=== PATIENT | female | born 1965 | race Caucasian/White ===

== ENCOUNTER 2021-02-20 08:40 | Outpatient (REF) | payer BC, SELFPAY ==
[2021-02-20 11:16] LABS: Glucose Urine UA NEG (NEG); Leukocyte Esterase Urine 3+ (NEG); Nitrite Urine NEG (NEG); Specific Gravity - Urine 1.015 (1.005-1.025); Urine Blood TRACE (NEG); Urine Ketones NEG (NEG); Urine Protein NEG (NEG-TRACE)
[2021-02-20 11:18] LABS: Appearance Urine HAZY; Color Urine YELLOW
[2021-02-20 11:22] LABS: Hematocrit 37.8 % (37-47); Hemoglobin 12.9 g/dl (12.0-16.0); Mean Corpuscular HGB Conc 34.1 g/dl (31.0-35.0); Mean Corpuscular Hemoglobin 31.9 pg (27.0-33.0); Mean Corpuscular Volume 93.3 fL (80-98); Mean Platelet Volume 8.9 fL (9.4-12.3); Platelet Count 237 X10*3/uL (160-400); Red Blood Count 4.05 X10*6/uL (4.20-5.50); Red Cell Distribution Width 12.8 % (11.0-16.0); White Blood Count 5.7 X10*3/uL (4.8-10.8)
[2021-02-20 11:26] LABS: Bacteria Urine 4+ /LPF; RBC Urine 0-2 /HPF (0); Squamous Epithelial Cell Urine 4+ /LPF
[2021-02-20 11:47] LABS: Alanine Aminotransferase 12 U/L (0-31); Albumin Level 4.3 g/dL (3.5-5.0); Alkaline Phosphatase 82 U/L (39-117); Anion Gap 13 (12-20); Aspartate Amino Transferase 15 U/L (5-31); Bilirubin Total 0.9 mg/dL (0.0-1.0); Blood Urea Nitrogen 14 mg/dL (9-16); Carbon Dioxide 25 mmol/L (22-29); Chloride 107 mmol/L (96-108); Cholesterol 181 mg/dL; Estimated Glomerular Filt Rate > 60; Glucose Fasting 88 mg/dL (60-99); HDL Cholesterol 60 mg/dL; LDL Cholesterol Calculated 95 mg/dl; Potassium 3.9 mmol/L (3.3-5.1); Sodium 141 mmol/L (135-145); Total Protein 6.9 g/dL (6.5-8.0); Triglycerides 132 mg/dL
[2021-02-20 11:53] LABS: TSH reflex Free T4 1.67 uIU/mL (0.32-4.0)
== END 2021-02-20 08:41 | disposition home or self-care (01) ==
LOC: HO.HMGCLDS 08:40
PROVIDERS: PCP Internal Medicine; Visit Provider Internal Medicine
DX: Z00.00 Encounter for general adult medical examination without abnormal findings (principal)
CPT/HCPCS: 36415; 80053; 80061; 81001; 84443; 85027

== ENCOUNTER 2022-03-01 08:22 | Outpatient (REF) | payer BC, SELFPAY ==
[2022-03-01 11:45] LABS: Appearance Urine CLOUDY; Color Urine YELLOW; Glucose Urine UA NEG (NEG); Leukocyte Esterase Urine NEG (NEG); Nitrite Urine NEG (NEG); PH 8.5 (5.0-8.0); Specific Gravity - Urine 1.015 (1.005-1.025); Urine Blood NEG (NEG); Urine Ketones NEG (NEG); Urine Protein NEG (NEG-TRACE)
[2022-03-01 11:51] LABS: Basophils Percent Auto 0.2 % (0-2); Eosinophils Absolute Auto 0.1 X10*3/uL (0.0-0.4); Hematocrit 39.1 % (37.0-47.0); Hemoglobin 13.2 g/dl (12.0-16.0); Imm Gran Abs Auto 0.02 X10*3/uL (0.00-0.03); Imm Gran Pct Auto 0.4 % (0.0-0.4); Lymphocytes Percent Auto 22.6 % (20-40); MANUAL DIFF FLAG NO; Mean Corpuscular HGB Conc 33.8 g/dl (31.0-35.0); Mean Corpuscular Hemoglobin 31.8 pg (27.0-33.0); Mean Corpuscular Volume 94.2 fL (80.0-98.0); Mean Platelet Volume 9.4 fL (9.4-12.3); Monocytes Absolute Auto 0.3 X10*3/uL (0.1-1.2); Monocytes Percent Auto 6.4 % (2-11); Neutrophils Absolute Auto 3.1 x10*3/uL (2.0-8.3); Neutrophils Percent Auto 68.4 % (45-73); Platelet Count 218 X10*3/uL (160-400); Red Blood Count 4.15 X10*6/uL (4.20-5.50); Red Cell Distribution Width 12.9 % (11.0-16.0); White Blood Count 4.6 X10*3/uL (4.8-10.8)
[2022-03-01 12:02] LABS: RBC Urine 0 /HPF (0); WBC Urine 0 /HPF (0-4)
[2022-03-01 12:03] LABS: Amorphous Sediment Urine 3+ /LPF; Mucus Urine 2+ /LPF; Squamous Epithelial Cell Urine 1+ /LPF
[2022-03-01 12:21] LABS: HBS Num1 44.71 mIU/mL (0-7.99); ~Hepatitis B Surface Antibody REACTIVE (Nonreactive)
[2022-03-01 12:32] LABS: TSH reflex Free T4 1.53 uIU/mL (0.32-4.0); Vitamin D 25-OH Total 58.1 ng/mL (>30)
[2022-03-01 12:38] LABS: Alanine Aminotransferase 19 U/L (0-31); Albumin Level 4.2 g/dL (3.5-5.0); Alkaline Phosphatase 86 U/L (39-117); Anion Gap 11 (12-20); Aspartate Amino Transferase 17 U/L (5-31); Bilirubin Total 0.9 mg/dL (0.0-1.0); Blood Urea Nitrogen 12 mg/dL (9-16); Carbon Dioxide 27 mmol/L (22-29); Chloride 105 mmol/L (96-108); Cholesterol 208 mg/dL; Estimated Glomerular Filt Rate > 60; Glucose Fasting 98 mg/dL (60-99); HDL Cholesterol 60 mg/dL; LDL Cholesterol Calculated 133 mg/dl; Potassium 4.2 mmol/L (3.3-5.1); Sodium 139 mmol/L (135-145); Total Protein 6.7 g/dL (6.5-8.0); Triglycerides 76 mg/dL
[2022-03-02 21:41] LABS: Rubella IgG Antibody 6.21 Index
== END 2022-03-01 08:23 | disposition home or self-care (01) ==
LOC: HO.HMGCLDS 08:22
PROVIDERS: PCP Internal Medicine; Visit Provider Internal Medicine
DX: Z00.00 Encounter for general adult medical examination without abnormal findings (principal); Z98.890 Other specified postprocedural states; Z92.89 Personal history of other medical treatment
CPT/HCPCS: 36415; 80053; 80061; 81001; 82306; 84443; 85025; 86706; 86735; 86762; 86765; 86787

== ENCOUNTER 2023-05-31 11:07 | Outpatient (AMB) | payer BC, SELFPAY ==
--- NOTE | 2023-05-31 11:08 | MHC.PC.OV ---
Vital Signs 05/31/23 11:09 Height 5 ft 4 in Weight 165 lb BMI 28.3 BP 118/64 Blood Pressure Location Lt brachial Position Sitting Pulse 67 Pulse Source Pulse Oximeter Pulse Oximetry (%) 98 Oxygen Delivery Method Room Air Intake Visit Reasons: Right Hip Pain/Medications Intake Note: Pt is here today for a follow up visit. Pt states that she needs refill on her medication. Pt states that she still has the R hip pain when she press on the hip she gets the ache, constant pain. Allergies No Known Allergies [No Known Allergies*] Allergy (Verified 05/31/23 11:12) Medication List - Last Reconciled 05/31/23 by Leslie Cottrell MD albuterol sulfate 90 mcg/actuation 2 puffs PO Q4H PRN beclomethasone dipropionate 80 mcg/actuation inhalation miscellaneous medical supply ergo chair as directed; Dx: neck and back pain miscellaneous medical supply rising desk as directed; DX: neck and back pain multivitamin 1 tab PO DAILY sertraline 100 mg PO DAILY [vitamin B12 PO] [vitamin D3 1000 unit a day] Tobacco use date assessed: 05/31/23 Dental Screening Dental Screen Date: 05/31/23 Did you have a dental visit in the last 12 months?: Yes Did you have a dental problem in the last 6 months where you did not have access to dental care?: No Was dental information given to patient?: Patient has dentist HPI Right Hip Pain/Medications HPI Details Patient presents for a physical. She complains of chronic persistent almost daily R side upper thigh pain worse after walking longer distance. She has been doing exercise and stretching regularly. patient is a physical therapist. [facility] Medical History (Updated 05/31/23 @ 11:44 by Leslie Cottrell MD) URI (upper respiratory infection) Annual physical exam Trigger finger of right thumb Depression Anxiety Surgical History (Updated 05/31/23 @ 12:33 by Leslie Cottrell MD) H/O colonoscopy Social History Housing: House Patient Tobacco Use Status: Never used Tobacco e-Cigarette/Vaping Use: Never Used Second Hand Smoke Exposure: No service: No Current occupational status: employed Current occupation: Occupational Therapist Current occupational exposures/hazards: No Cognitive needs: No Hearing needs: No Vision needs: Yes Questionnaire Thrive Questionnaire Date Thrive assessed: 02/21/22 AUDIT C Alcohol Use Questionnaire (AUDIT-C) 1. How often do you have a drink containing alcohol?: 2-3 times a week 2. How many drinks containing alcohol do you have on a typical day when you are drinking?: 1 or 2 3. How often do you have six or more drinks on one occasion?: Never Total Score: 3 ANA-7 AMB Questionnaire ANA-7 Date ANA - 7 assessed: 02/21/22 Source: Developed by Drs. Kadeem Marshall, Lizbeth Briones, Willie Gallego and colleagues, with an educational león from [employer]. Review of Systems Const All systems reviewed & are unremarkable except as noted in HPI and below Reports no additional complaints Eyes Reports no additional complaints ENT Reports no additional complaints Card Reports no additional complaints Resp Reports no additional complaints GI Reports no additional complaints Reports no additional complaints Physical exam (Primary Care) Vital Signs: Last Vital Signs Pulse 67 05/31/23 11:09 BP 118/64 05/31/23 11:09 Pulse Ox 98 05/31/23 11:09 Oxygen Delivery Method Room Air 05/31/23 11:09 BMI result Body Mass Index 28.3 Tobacco/Smoking Status: Tobacco use Status Tobacco use date assessed 05/31/23 05/31/23 11:17 Patient Tobacco Use Status Never used Tobacco 05/31/23 11:17 e-Cigarette/Vaping Use Never Used 05/31/23 11:17 Thrive Assessment: Date of Thrive Assessment Date Thrive assessed 02/21/22 05/31/23 11:17 Const General: no acute distress HENMT Head: Yes normal to inspection Ears: hearing grossly normal bilaterally Face and sinus: Yes normal facial exam Throat: Yes posterior oropharynx normal Neck Neck: Yes no lymphadenopathy and Yes supple Resp Effort & Inspection: normal respiratory effort Auscultation: clear to auscultation bilaterally Cardio Rhythm: regular rhythm Heart sounds: S1 normal heart sound present and S2 normal heart sound present GI Inspection: Yes normal to inspection Palpation (GI): Soft to palpation Percussion: Yes normal to percussion Auscultation: normal bowel sounds Back/Spine/Pelvis Other: There is a tenderness over right SI joint and slightly decreased range of motion right hip, straight leg rising 90 degrees bilaterally Assessment and Plan Assessment & Plan (1) Hip pain, right: Code(s): M25.551 - Pain in right hip Plan: Wendy x-ray of right SI joint and hip. Patient was advised to continue stretching before and after exercise. She declined referral for cortisone injection (2) Chronic right SI joint pain: Code(s): M53.3 - Sacrococcygeal disorders, not elsewhere classified; G89.29 - Other chronic pain (3) Annual physical exam: Code(s): Z00.00 - Encounter for general adult medical examination without abnormal findings Plan: Well-balanced diet regular physical activity discussed with the patient she is up to date with mammogram colonoscopy and Pap smear by information services consultant. Patient will return for fasting blood (4) H/O colonoscopy: Comment: colonoscopy 12/2018 1 polyp 8 mm, repeat 2021, recheck in 3 years, Dr. Santana Code(s): Z98.890 - Other specified postprocedural states (5) Anxiety: Code(s): F41.9 - Anxiety disorder, unspecified Plan: Continue sertraline. follow-up in 1 year Orders: Orders Comprehensive [place]. Panel Fast Today G89.29 - Other chronic pain, M25.551 - Pain in right hip, M53.3 - Sacrococcygeal disorders, not elsewhere classified, Z00.00 - Encounter for general adult medical examination without abnormal findings Lipid Panel Today G89.29 - Other chronic pain, M25.551 - Pain in right hip, M53.3 - Sacrococcygeal disorders, not elsewhere classified, Z00.00 - Encounter for general adult medical examination without abnormal findings TSH reflex Free T4 Today G89.29 - Other chronic pain, M25.551 - Pain in right hip, M53.3 - Sacrococcygeal disorders, not elsewhere classified, Z00.00 - Encounter for general adult medical examination without abnormal findings Vitamin D 25-OH Total Today E55.9 - Vitamin D deficiency, unspecified XR hip RT w PEL1V Today M25.551 - Pain in right hip Complete Blood Count Auto Diff Today G89.29 - Other chronic pain, M25.551 - Pain in right hip, M53.3 - Sacrococcygeal disorders, not elsewhere classified, Z00.00 - Encounter for general adult medical examination without abnormal findings XR sacroiliac joint 1-2V Today G89.29 - Other chronic pain, M25.551 - Pain in right hip, M53.3 - Sacrococcygeal disorders, not elsewhere classified, Z00.00 - Encounter for general adult medical examination without abnormal findings Medications: Refilled sertraline 100 mg PO DAILY 90 tabs 3RF F32.9 - Major depressive disorder, single episode, unspecified, F41.9 - Anxiety disorder, unspecified Coding Level of Care Code Est Pt Prev Care 40-64y(59709) Diagnoses Hip pain, right M25.551 Chronic right SI joint pain M53.3; G89.29 Annual physical exam Z00.00 H/O colonoscopy Z98.890 Anxiety F41.9
[2023-05-31 11:09] VITALS: BP 118/64; PULSE 67; O2SAT 98; BMI 28.3
== END 2023-05-31 12:36 | disposition home or self-care (01) ==
PROVIDERS: PCP Internal Medicine; Visit Provider Internal Medicine
DX: M25.551 Pain in right hip (principal); M53.3 Sacrococcygeal disorders, not elsewhere classified; G89.29 Other chronic pain; Z00.00 Encounter for general adult medical examination without abnormal findings; Z98.890 Other specified postprocedural states; F41.9 Anxiety disorder, unspecified
CPT/HCPCS: 99396

== ENCOUNTER 2023-05-31 11:51 | Outpatient (REF) | payer BC, SELFPAY ==
--- NOTE | ~2023-05-31 | XR_ITS ---
EXAMINATION: XR SACROILIAC JOINTS XR HIP, RIGHT WITH AP PELVIS CLINICAL INFORMATION: Right hip pain. Sacrococcygeal disorder. COMPARISON: Pelvic radiograph 01/12/2019 TECHNIQUE: AP and oblique views of each SI joint. AP radiograph of the pelvis. AP and frog-lateral views of the right hip. FINDINGS: Minimal bilateral hip osteoarthritis with small marginal osteophytes. No acute osseous abnormality. Minimal degenerative changes of the sacroiliac joints. No erosions or ankylosis. Prominent facet arthrosis bilaterally at L5-S1 and on the right at L4-L5. 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 Prominent facet arthrosis at L4-L5 and L5-S1.
--- NOTE | ~2023-05-31 | XR_ITS ---
EXAMINATION: XR SACROILIAC JOINTS XR HIP, RIGHT WITH AP PELVIS CLINICAL INFORMATION: Right hip pain. Sacrococcygeal disorder. COMPARISON: Pelvic radiograph 01/12/2019 TECHNIQUE: AP and oblique views of each SI joint. AP radiograph of the pelvis. AP and frog-lateral views of the right hip. FINDINGS: Minimal bilateral hip osteoarthritis with small marginal osteophytes. No acute osseous abnormality. Minimal degenerative changes of the sacroiliac joints. No erosions or ankylosis. Prominent facet arthrosis bilaterally at L5-S1 and on the right at L4-L5. 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 Prominent facet arthrosis at L4-L5 and L5-S1.
== END 2023-05-31 11:52 | disposition home or self-care (01) ==
LOC: HO.HMGCX 11:51
PROVIDERS: PCP Internal Medicine; Visit Provider Internal Medicine
DX: M25.551 Pain in right hip (principal); M53.3 Sacrococcygeal disorders, not elsewhere classified; G89.29 Other chronic pain; Z00.00 Encounter for general adult medical examination without abnormal findings
CPT/HCPCS: 72200; 73502

== ENCOUNTER 2023-06-13 08:21 | Outpatient (REF) | payer BC, SELFPAY ==
[2023-06-13 11:36] LABS: MANUAL DIFF FLAG NO
[2023-06-13 11:48] LABS: Basophils Percent Auto 0.5 % (0-2); Eosinophils Absolute Auto 0.1 X10*3/uL (0.0-0.4); Eosinophils Percent Auto 1.8 % (0-4); Hematocrit 40.8 % (37.0-47.0); Hemoglobin 13.9 g/dl (12.0-16.0); Imm Gran Abs Auto 0.02 X10*3/uL (0.00-0.03); Imm Gran Pct Auto 0.4 % (0.0-0.4); Lymphocytes Absolute Auto 1.4 X10*3/uL (1.2-4.9); Lymphocytes Percent Auto 24.2 % (20-40); Mean Corpuscular HGB Conc 34.1 g/dl (31.0-35.0); Mean Corpuscular Hemoglobin 31.9 pg (27.0-33.0); Mean Corpuscular Volume 93.6 fL (80.0-98.0); Mean Platelet Volume 8.9 fL (9.4-12.3); Monocytes Absolute Auto 0.3 X10*3/uL (0.1-1.2); Monocytes Percent Auto 5.2 % (2-11); Neutrophils Absolute Auto 3.8 x10*3/uL (2.0-8.3); Neutrophils Percent Auto 67.9 % (45-73); Platelet Count 249 X10*3/uL (160-400); Red Blood Count 4.36 X10*6/uL (4.20-5.50); Red Cell Distribution Width 12.6 % (11.0-16.0); White Blood Count 5.6 X10*3/uL (4.8-10.8)
[2023-06-13 12:21] LABS: Alanine Aminotransferase 18 U/L (0-31); Albumin Level 4.3 g/dL (3.5-5.0); Alkaline Phosphatase 90 U/L (39-117); Anion Gap 15 (12-20); Aspartate Amino Transferase 16 U/L (5-31); Bilirubin Total 0.8 mg/dL (0.0-1.0); Blood Urea Nitrogen 14 mg/dL (9-16); Calcium 9.6 mg/dL (8.4-10.2); Carbon Dioxide 23 mmol/L (22-29); Chloride 101 mmol/L (96-108); Cholesterol 217 mg/dL (<200); Estimated Glomerular Filt Rate > 60; Glucose Fasting 95 mg/dL (60-99); HDL Cholesterol 60 mg/dL (>40); LDL Cholesterol Calculated 138 mg/dL (<100); Potassium 4.2 mmol/L (3.3-5.1); Sodium 135 mmol/L (135-145); Total Protein 7.1 g/dL (6.5-8.0); Triglycerides 95 mg/dL (<150)
[2023-06-13 12:26] LABS: TSH reflex Free T4 2.52 uIU/mL (0.32-4.0); Vitamin D 25-OH Total 64.5 ng/mL (>30)
== END 2023-06-13 08:22 | disposition home or self-care (01) ==
LOC: HO.HMGCLDS 08:21
PROVIDERS: PCP Internal Medicine; Visit Provider Internal Medicine
DX: Z00.00 Encounter for general adult medical examination without abnormal findings (principal); M53.3 Sacrococcygeal disorders, not elsewhere classified; G89.29 Other chronic pain; M25.551 Pain in right hip; E55.9 Vitamin D deficiency, unspecified
CPT/HCPCS: 36415; 80053; 80061; 82306; 84443; 85025

== ENCOUNTER 2023-06-19 07:59 | Outpatient (REF) | payer BC, SELFPAY ==
--- NOTE | ~2023-06-19 | MM_ITS ---
EXAMINATION: BONE DENSITOMETRY CLINICAL INDICATION: Menopause. COMPARISON: This is the patient's baseline examination. TECHNIQUE: Using a [employer] DXA System (software version: 13.1) manufactured by [employer], dual-energy x-ray absorptiometry was performed of the lumbar spine and left hip. The images are of good technical quality. Summary results are attached. FINDINGS: AP SPINE L1-L4: BMD 1.006 g/cm2, Z-score -0.9, T-score -1.5, osteopenia. LEFT FEMUR, NECK: BMD 0.742 g/cm2, Z-score -1.3, T-score -2.1, osteopenia. LEFT FEMUR, TOTAL: BMD 0.802 g/cm2, Z-score -1.2, T-score -1.6, osteopenia. IDENTIFIED RISK FACTORS: Menopause. HISTORY OF FRACTURE: None listed. MEDICATIONS: Multivitamin, vitamin D. MM/XR DEXA axial skeleton IMPRESSION: 1. DIAGNOSIS: Osteopenia based on the lowest T-score value of -2.1 in the femoral neck applying World Health Organization criteria. 2. 10-YEAR FRACTURE RISK PREDICTION, FRAX: Major osteoporotic fracture (clinical spine, forearm, hip or shoulder) 8.3%. Hip fracture 1.1%. 3. Treatment Recommendations: NOF guidelines recommend consideration for treatment in postmenopausal women and men age 50 and older presenting with the following: -A hip or vertebral (clinical or morphometric) fracture. -T-score less than or equal to -2.5 at the femoral neck or spine after appropriate evaluation to exclude secondary causes. -Low bone mass at the hip or spine and a 10-year fracture probability by FRAX of greater than or equal to 3% for hip fracture or greater than or equal to 20% for major osteoporotic fracture based on the [place] adapted WHO algorithm. 4. Other Recommendations: All treatment decisions require clinical judgment and consideration of individual patient factors, including patient preferences, comorbidities, previous drug use, risk factors not captured in the FRAX model (e.g. frailty, falls, vitamin D deficiency, increased bone turnover, interval significant decline in bone density) and possible under or overestimation of fracture risk by FRAX. Additional medical evaluation for secondary cause of low bone mineral density may be appropriate. FUTURE SCAN RECOMMENDATION: People with diagnosed cases of osteoporosis or at high risk for fracture should have regular bone mineral density tests. For patients eligible for Medicare, routine testing is allowed once every 2 years. The testing frequency can be increased to one year for patients who have rapidly progressing disease, those who are receiving or discontinuing medical therapy to restore bone mass, or have additional risk factors.
== END 2023-06-19 08:00 | disposition home or self-care (01) ==
LOC: HO.MAMMO 07:59
PROVIDERS: PCP Internal Medicine; Visit Provider Internal Medicine
DX: Z13.820 Encounter for screening for osteoporosis (principal); Z78.0 Asymptomatic menopausal state
CPT/HCPCS: 77080

== ENCOUNTER 2023-07-10 18:17 | Outpatient (REF) | payer BC, SELFPAY ==
--- NOTE | ~2023-07-10 | MR_ITS ---
EXAMINATION: MR LUMBAR SPINE WITHOUT CONTRAST CLINICAL INFORMATION: Disc degeneration, pain COMPARISON: None available TECHNIQUE: MRI of the lumbar spine was obtained using routine sequences without the administration of intravenous contrast. FINDINGS: This examination assumes the presence of 5 lumbar type vertebral bodies. For the purposes of this examination, the L5-S1 intervertebral disc space is visualized on axial series 5 image 23. The normal lumbar lordosis is preserved. Retrolisthesis of L2-L3 and L3-L4. Levocurvature of the lumbar spine. Lumbar vertebral body heights are maintained. Benign fatty lesion in the T11 vertebral body. There is prominent right-sided facet/perifacet edema at L4-L5 extending into the right L4-L5 pedicles. Findings likely on the basis of degenerative change/stress reaction. The conus medullaris is normal in signal intensity and terminates at the level of L1. The cauda equina nerve roots within normal limits. L1-L2: No significant spinal canal or neural foraminal stenosis. L2-L3: Disc bulge and facet arthropathy. The spinal canal is not significantly narrowed. Mild narrowing of the bilateral neural foramen. L3-L4: Disc bulge and osteophytic ridging with facet arthropathy and ligamentum flavum redundancy. The spinal canal is patent. The neural foramen are not significantly narrowed. L4-L5: Left foraminal disc protrusion with annular fissure. Facet arthropathy with ligamentum flavum redundancy. The spinal canal is not significantly narrowed. The neural foramen remain patent. L5-S1: Disc bulge and facet arthropathy with ligamentum flavum redundancy. The spinal canal is patent. Mild to moderate right neural foraminal stenosis. Mild narrowing of the left neural foramen. Subcentimeter T2 hyperintense focus in the right kidney is too small to characterize. MR/MR lumbar spine wo con IMPRESSION: Levocurvature of the lumbar spine with multilevel degenerative changes as described above. No high-grade spinal canal or neural foraminal stenosis. Asymmetric right-sided facet/perifacet edema extending into the right L4 and L5 pedicles is likely on the basis of asymmetric degenerative change/stress reaction.
== END 2023-07-10 18:18 | disposition home or self-care (01) ==
LOC: HO.MRI 18:17
PROVIDERS: PCP Internal Medicine; Visit Provider Internal Medicine
DX: M51.36 Other intervertebral disc degeneration, lumbar region (principal)
CPT/HCPCS: 72148

== ENCOUNTER 2023-09-11 09:19 | Outpatient (AMB) | payer BC, SELFPAY ==
--- NOTE | 2023-09-11 09:59 | HO.SPINEOV ---
Intake Intake Visit Reasons: low back pain Allergies No Known Allergies [No Known Allergies*] Allergy (Verified 05/31/23 11:12) Assessment & Plan Assessment & Plan (1) Low back pain: Code(s): M54.50 - Low back pain, unspecified Plan Dear Colleague, Thank you for referring Marlene to our office today. She is a pleasant 57-year-old female who comes in today with a chief complaint of isolated right-sided thigh pain alongside low back pain. She reports that her symptoms began without any inciting incident around December of 2022. She states that this pain is waxing/waning in nature in his low-grade/constant. She reports that her pain is exacerbated when moving and exercising. She states that resting helps to alleviate the pain. She has attempted to utilize conservative pain control methods via ice, heat, pain patches, and [id number] pain control medicines with modest relief. She states that her pain was worse over the summer when she felt she weighed more, and has slowly begun to lessen as she has lost weight and continued exercise. She is previously been worked up for SI joint arthritis on the right side, and is not amenable to having SI joint injections at this time. PMH: Asthma, depression, vitamin-D deficiency, anxiety. Social hx: Patient does not smoke, reports no substance use. Medications: Albuterol, sertraline, multivitamin. Allergies: NKDA. Physical exam: The patient has 5/5 strength in her upper and lower extremities. No sensational deficits. Reflexes are 2+ intact. The patient ambulates well and rises from seated position without difficulty. (+) Mckenzie finger test R side, weakly (+) Per's right side, (-) Romo's, (-) clonus. Imaging review: MRI of the lumbar spine completed here at [facility] shows normal spondylosis for a female of her age. No significant posterior disc bulge, no significant central canal stenosis. Exiting foramen appear open without significant stenosis in the lumbar spine Impression: Marlene is a pleasant 57-year-old female who comes in today with a chief complaint of low back pain and right-sided thigh pain. She reports that her symptoms are waxing/waning in nature and seem to be improving with weight loss and exercise. She is previously been worked up for a right-sided SI joint pathology, and had an x-ray showing mild-moderate arthritis on this side in the SI joint region. She was not amenable to this suggestion of her primary care to obtain an SI joint injection per previous internal medicine notes. At this time I believe conservative measures to be her best option. We did have some discussion of potential physical therapy, but she feels she is able to do those exercises at home as she practices as an occupational therapist. We do not see any acute or obvious neurosurgical intervention that could help relieve her pain. She was encouraged to follow-up with us in the future if she has new or worsening symptoms. Thank you for allowing us to care for your patient. The total time spent with this visit with this patient was 45 minutes reviewing history, physical exam, MRI imaging review, and implementation of treatment plan or further diagnostic testing Kye Vo MD,PhD [facility] Coding Level of Care Code New Pt Level 4 (77185) Diagnoses Low back pain M54.50
== END 2023-09-11 09:57 | disposition home or self-care (01) ==
PROVIDERS: PCP Internal Medicine; Referring Provider Internal Medicine; Visit Provider Neurological Surgery
DX: M54.50 Low back pain, unspecified (principal)
CPT/HCPCS: 99204

== ENCOUNTER → 2023-09-11 09:19 | Outpatient (BNVA) | payer BC, SELFPAY | PROVIDERS: PCP Internal Medicine; Referring Provider Internal Medicine; Visit Provider Neurological Surgery ==

== ENCOUNTER 2024-06-12 11:16 | Outpatient (AMB) | payer BC, SELFPAY ==
[2024-06-12 11:18] VITALS: BP 128/80; PULSE 79; O2SAT 96; BMI 27.8
--- NOTE | 2024-06-12 11:18 | A.OFFPC_ITS ---
Vital Signs 06/12/24 11:18 Height 5 ft 4 in Weight 162 lb BMI 27.8 BP 128/80 Blood Pressure Location Lt brachial Position Sitting Pulse 79 Pulse Source Pulse Oximeter Pulse Oximetry (%) 96 Oxygen Delivery Method Room Air Intake Visit Reasons: Annual PE Intake Note: Pt is here today for PE. Allergies No Known Allergies [No Known Allergies*] Allergy (Verified 06/12/24 11:19) Medication List - Last Reconciled 06/12/24 by Leslie Cottrell MD albuterol sulfate 90 mcg/actuation 2 puffs PO Q4H PRN beclomethasone dipropionate 80 mcg/actuation inhalation miscellaneous medical supply ergo chair as directed; Dx: neck and back pain miscellaneous medical supply rising desk as directed; DX: neck and back pain multivitamin 1 tab PO DAILY sertraline 100 mg PO DAILY [vitamin B12 PO] [vitamin D3 1000 unit a day] Tobacco use date assessed: 06/12/24 Dental Screening Dental Screen Date: 06/12/24 Did you have a dental visit in the last 12 months?: Yes Did you have a dental problem in the last 6 months where you did not have access to dental care?: No Was dental information given to patient?: Patient has dentist HPI Annual PE HPI Details Patient presents for a physical. Her father was diagnosed with metastatic pancreatic cancer and is on hospice. Patient is very upset and is trying to support her mother. [facility] Medical History URI (upper respiratory infection) Annual physical exam Trigger finger of right thumb Depression Anxiety Surgical History H/O colonoscopy Social History Housing: House Patient Tobacco Use Status: Never used Tobacco e-Cigarette/Vaping Use: Never Used Second Hand Smoke Exposure: No service: No Current occupational status: employed Current occupation: Occupational Therapist Current occupational exposures/hazards: No Cognitive needs: No Hearing needs: No Vision needs: Yes Questionnaire PHQ-9 Over the last 2 weeks, how often have you been bothered by any of the following problems? 1. Little interest or pleasure in doing things: not at all 2. Feeling down, depressed, or hopeless: not at all 3. Trouble falling or staying asleep, or sleeping too much: not at all 4. Feeling tired or having little energy: nearly every day 5. Poor appetite or overeating: not at all 6. Feeling bad about yourself - or that you are a failure or have let yourself or your family down: not at all 7. Trouble concentrating on things, such as reading the newspaper or watching television: not at all 8. Moving or speaking so slowly that other people could have noticed. Or the opposite - being so fidgety or restless that you have been moving around a lot more than usual: not at all 9. Thoughts that you would be better off or of hurting yourself in some w ay: not at all Total score: 3 Depression Screening Interpretation: Negative Depression Screening Done: Yes 81199 - PHQ-9 Billing: Yes Source: Developed by Drs. Kadeem Marshall, Lizbeth Briones, Willie Gallego and colleagues, with an educational león from [employer] Thrive Questionnaire Date Thrive assessed: 06/12/24 I am a: Patient What is your living situation today?: I have a steady place to live Within the past 12 months, did the food you bought not last and you didn't have the money to get more?: Never true Within the past 12 months, did you worry whether your food would run out before you got money to buy more?: Never true Do you have trouble paying for medicines?: No Do you have trouble getting transportation to medical appointments?: No Do you have trouble paying your heating and electricity bill?: No Do you have trouble taking care of your child, family member or friend?: No Do you have trouble with day-to-day activities such as bathing, preparing meals, shopping, managing finances, etc.?: No Are you currently unemployed and looking for a job?: No Are you interested in more education?: Yes Please select the resources that you would like help with: Care for elder or disabled Currently or been in a relationship where the following occur: No concerns reported THRIVE Score: 0 AUDIT C Alcohol Use Questionnaire (AUDIT-C) 1. How often do you have a drink containing alcohol?: 2-3 times a week 2. How many drinks containing alcohol do you have on a typical day when you are drinking?: 3 or 4 3. How often do you have six or more drinks on one occasion?: Weekly Total Score: 7 ANA-7 AMB Questionnaire ANA-7 Date ANA - 7 assessed: 06/12/24 Feeling nervous, anxious, or on edge: 3 = Nearly every day Not being able to stop or control worryin = Nearly every day Worrying too much about different things: 3 = Nearly every day Trouble relaxin = Nearly every day Being so restless that it is hard to sit still: 3 = Nearly every day Becoming easily annoyed or irritable: 3 = Nearly every day Feeling afraid as if something awful might happen: 3 = Nearly every day Total ANA-7 score (0-4 normal; 5-9 mild; 10-14 moderate; 15-21 severe): 21 Source: Developed by Drs. Kadeem Marshall, Lizbeth Briones, Willie Gallego and colleagues, with an educational león from [employer] ANA-7 Assessment Billing ANA-7 Assessment Tool: ANA-7 Assessment 77346 Review of Systems Const All systems reviewed & are unremarkable except as noted in HPI and below Reports no additional complaints Eyes Reports no additional complaints ENT Reports no additional complaints Card Reports no additional complaints Resp Reports no additional complaints GI Reports no additional complaints Reports no additional complaints Physical exam (Primary Care) Vital Signs: Last Vital Signs Pulse 79 06/12/24 11:18 BP 128/80 06/12/24 11:18 Pulse Ox 96 06/12/24 11:18 Oxygen Delivery Method Room Air 06/12/24 11:18 BMI result Body Mass Index 27.8 Tobacco/Smoking Status: Tobacco use Status Tobacco use date assessed 06/12/24 06/12/24 11:20 Patient Tobacco Use Status Never used Tobacco 06/12/24 11:20 e-Cigarette/Vaping Use Never Used 06/12/24 11:20 PHQ-9: PHQ-9 Score PHQ-9: Total score 3 06/12/24 11:27 Depression Screening Interpretation: Negative Thrive Assessment: Date of Thrive Assessment Date Thrive assessed 06/12/24 06/12/24 11:20 Currently or been in a relationship where the following occur: No concerns reported Const General: no acute distress HENMT Face and sinus: Yes normal facial exam Neck Neck: Yes no lymphadenopathy and Yes supple Resp Effort & Inspection: normal respiratory effort Auscultation: clear to auscultation bilaterally Cardio Rhythm: regular rhythm Heart sounds: S1 normal heart sound present and S2 normal heart sound present GI Inspection: Yes normal to inspection Palpation (GI): Soft to palpation Percussion: Yes normal to percussion Auscultation: normal bowel sounds Coding Level of Care Code Est Pt Prev Care 40-64y(06190) Diagnoses Vitamin D deficiency E55.9 Annual physical exam Z00.00 Anxiety F41.9 Additional Codes ANA-7 Assessment Billing - ANA-7 Assessment Tool: ANA-7 Assessment [id number] ([id number]) Assessment & Plan Assessment & Plan (1) Vitamin D deficiency: Code(s): E55.9 - Vitamin D deficiency, unspecified Category: Medical Plan: Continue vitamin-D (2) Annual physical exam: Code(s): Z00.00 - Encounter for general adult medical examination without abnormal findings Category: Medical Plan: Well-balanced diet regular physical activity discussed with the patient she is up-to-date with the Pap smear by [facility] and colonoscopy. (3) Anxiety: Code(s): F41.9 - Anxiety disorder, unspecified Category: Medical Plan: Continue Zoloft patient will be referred for grieving counseling Orders: Orders Comprehensive [place]. Panel Fast Today E55.9 - Vitamin D deficiency, unspecified, F41.9 - Anxiety disorder, unspecified, Z00.00 - Encounter for general adult medical examination without abnormal findings Complete Blood Count Auto Diff Today E55.9 - Vitamin D deficiency, unspecified, F41.9 - Anxiety disorder, unspecified, Z00.00 - Encounter for general adult medical examination without abnormal findings Lipid Panel Today E55.9 - Vitamin D deficiency, unspecified, F41.9 - Anxiety disorder, unspecified, Z00.00 - Encounter for general adult medical examination without abnormal findings TSH reflex Free T4 Today E55.9 - Vitamin D deficiency, unspecified, F41.9 - Anxiety disorder, unspecified, Z00.00 - Encounter for general adult medical examination without abnormal findings Vitamin D 25-OH Total Today E55.9 - Vitamin D deficiency, unspecified, F41.9 - Anxiety disorder, unspecified, Z00.00 - Encounter for general adult medical examination without abnormal findings
== END 2024-06-12 13:17 | disposition home or self-care (01) ==
PROVIDERS: PCP Internal Medicine; Visit Provider Internal Medicine
DX: E55.9 Vitamin D deficiency, unspecified (principal); Z00.00 Encounter for general adult medical examination without abnormal findings; F41.9 Anxiety disorder, unspecified

== ENCOUNTER → 2024-06-12 11:16 | Outpatient (BNVA) | payer BC, SELFPAY | PROVIDERS: PCP Internal Medicine; Visit Provider Internal Medicine | DX: Z00.00 Encounter for general adult medical examination without abnormal findings (principal); E55.9 Vitamin D deficiency, unspecified; F41.9 Anxiety disorder, unspecified; Z79.899 Other long term (current) drug therapy | CPT/HCPCS: 96127 ==

== ENCOUNTER 2024-07-07 08:05 | Outpatient (REF) | payer BC, SELFPAY ==
[2024-07-07 10:12] LABS: MANUAL DIFF FLAG NO
[2024-07-07 10:23] LABS: Basophils Percent Auto 0.4 % (0-2); Eosinophils Absolute Auto 0.1 X10*3/uL (0.0-0.4); Hematocrit 38.6 % (37.0-47.0); Hemoglobin 13.1 g/dl (12.0-16.0); Imm Gran Abs Auto 0.02 X10*3/uL (0.00-0.03); Imm Gran Pct Auto 0.4 % (0.0-0.4); Lymphocytes Absolute Auto 1.3 X10*3/uL (1.2-4.9); Lymphocytes Percent Auto 23.4 % (20-40); Mean Corpuscular HGB Conc 33.9 g/dl (31.0-35.0); Mean Corpuscular Hemoglobin 31.4 pg (27.0-33.0); Mean Corpuscular Volume 92.6 fL (80.0-98.0); Monocytes Absolute Auto 0.3 X10*3/uL (0.1-1.2); Monocytes Percent Auto 4.9 % (2-11); Neutrophils Absolute Auto 3.8 x10*3/uL (2.0-8.3); Neutrophils Percent Auto 68.9 % (45-73); Platelet Count 229 X10*3/uL (160-400); Red Blood Count 4.17 X10*6/uL (4.20-5.50); Red Cell Distribution Width 12.7 % (11.0-16.0); White Blood Count 5.5 X10*3/uL (4.8-10.8)
[2024-07-07 10:46] LABS: Alanine Aminotransferase 19 U/L (0-31); Albumin Level 4.1 g/dL (3.5-5.0); Alkaline Phosphatase 89 U/L (39-117); Anion Gap 10 (12-20); Aspartate Amino Transferase 19 U/L (5-31); Bilirubin Total 0.7 mg/dL (0.0-1.0); Blood Urea Nitrogen 11 mg/dL (9-16); Calcium 9.1 mg/dL (8.4-10.2); Carbon Dioxide 25 mmol/L (22-29); Chloride 107 mmol/L (96-108); Cholesterol 209 mg/dL (<200); Estimated Glomerular Filt Rate > 60; Glucose Fasting 93 mg/dL (60-99); HDL Cholesterol 61 mg/dL (>40); LDL Cholesterol Calculated 131 mg/dL (<100); Potassium 3.7 mmol/L (3.3-5.1); Sodium 138 mmol/L (135-145); Total Protein 6.7 g/dL (6.5-8.0); Triglycerides 85 mg/dL (<150)
[2024-07-07 11:06] LABS: TSH reflex Free T4 1.94 uIU/mL (0.32-4.0)
== END 2024-07-07 08:06 | disposition home or self-care (01) ==
LOC: HO.HMGCLDS 08:05
PROVIDERS: PCP Internal Medicine; Visit Provider Internal Medicine
DX: Z00.00 Encounter for general adult medical examination without abnormal findings (principal); E55.9 Vitamin D deficiency, unspecified; F41.9 Anxiety disorder, unspecified; Z83.49 Family history of other endocrine, nutritional and metabolic diseases
CPT/HCPCS: 36415; 80053; 80061; 81256; 82306; 84443; 85025

== ENCOUNTER 2024-08-17 12:49 | Outpatient (AMB) | payer BC, SELFPAY ==
--- NOTE | 2024-08-17 13:03 | A.OFFPC_ITS ---
Vital Signs 08/17/24 13:04 Height 5 ft 4 in Weight 167 lb BMI 28.7 BP 110/64 Blood Pressure Location Rt brachial Position Sitting Pulse 76 Pulse Source Pulse Oximeter Pulse Oximetry (%) 97 Oxygen Delivery Method Room Air Intake Visit Reasons: Palpitations, anxiety Intake Note: Pt is here today for a sick visit. Pt c/o increased anxiety and palpitations. Allergies No Known Allergies [No Known Allergies*] Allergy (Verified 08/17/24 13:07) Medication List - Last Reconciled 08/17/24 by Leslie Cottrell MD albuterol sulfate 90 mcg/actuation 2 puffs PO Q4H PRN beclomethasone dipropionate 80 mcg/actuation inhalation miscellaneous medical supply ergo chair as directed; Dx: neck and back pain miscellaneous medical supply rising desk as directed; DX: neck and back pain multivitamin 1 tab PO DAILY sertraline 150 mg PO DAILY [vitamin B12 PO] [vitamin D3 1000 unit a day] Tobacco use date assessed: 08/17/24 Dental Screening Dental Screen Date: 06/12/24 HPI Palpitations, anxiety HPI Details Pt presents c/o increased anxiety, panic attacks while driving since her father 2 months ago. She denies insomnia or change in appetite. Patient has been working but finds it challenging. She is planning to start grieving counseling. Patient increase sertraline to 150 mg from 100 mg 2 days ago. [facility] Medical History URI (upper respiratory infection) Annual physical exam Trigger finger of right thumb Depression Anxiety Surgical History H/O colonoscopy Social History Housing: House Patient Tobacco Use Status: Never used Tobacco e-Cigarette/Vaping Use: Never Used Second Hand Smoke Exposure: No service: No Current occupational status: employed Current occupation: Occupational Therapist Current occupational exposures/hazards: No Cognitive needs: No Hearing needs: No Vision needs: Yes Questionnaire Thrive Questionnaire Date Thrive assessed: 06/09/24 I am a: Patient What is your living situation today?: I have a steady place to live Within the past 12 months, did the food you bought not last and you didn't have the money to get more?: Never true Within the past 12 months, did you worry whether your food would run out before you got money to buy more?: Never true Do you have trouble paying for medicines?: No Do you have trouble getting transportation to medical appointments?: No Do you have trouble paying your heating and electricity bill?: No Do you have trouble taking care of your child, family member or friend?: No Do you have trouble with day-to-day activities such as bathing, preparing meals, shopping, managing finances, etc.?: No Are you currently unemployed and looking for a job?: No Are you interested in more education?: Yes Please select the resources that you would like help with: Care for elder or disabled Currently or been in a relationship where the following occur: No concerns reported THRIVE Score: 0 ANA-7 AMB Questionnaire ANA-7 Date ANA - 7 assessed: 06/12/24 Source: Developed by Drs. Kadeem Marshall, Lizbeth Briones, Willie Gallego and colleagues, with an educational león from [employer]. Review of Systems Const All systems reviewed & are unremarkable except as noted in HPI and below Reports no additional complaints Eyes Reports no additional complaints ENT Reports no additional complaints Card Reports no additional complaints Resp Reports no additional complaints GI Reports no additional complaints Reports no additional complaints Physical exam (Primary Care) Vital Signs: Last Vital Signs Pulse 76 08/17/24 13:04 BP 110/64 08/17/24 13:04 Pulse Ox 97 08/17/24 13:04 Oxygen Delivery Method Room Air 08/17/24 13:04 BMI result Body Mass Index 28.7 Tobacco/Smoking Status: Tobacco use Status Tobacco use date assessed 08/17/24 08/17/24 13:10 Patient Tobacco Use Status Never used Tobacco 08/17/24 13:03 e-Cigarette/Vaping Use Never Used 08/17/24 13:03 Thrive Assessment: Date of Thrive Assessment Date Thrive assessed 06/09/24 08/17/24 13:03 Currently or been in a relationship where the following occur: No concerns reported Const General: no acute distress HENMT Mouth: Normal oral and palatal mucosa present Resp Effort & Inspection: normal respiratory effort Auscultation: clear to auscultation bilaterally Cardio Rhythm: regular rhythm Heart sounds: S1 normal heart sound present and S2 normal heart sound present Coding Level of Care Code Est Pt Level 3 (42297) Diagnoses Anxiety F41.9 Assessment & Plan Assessment & Plan (1) Anxiety: Code(s): F41.9 - Anxiety disorder, unspecified Category: Medical Plan: Continue 150 mg of sertraline and patient will start with in counseling. She will follow-up in 1 month or p.r.n. Medications: New sertraline 150 mg (1.5 x 100 mg) PO DAILY 135 tabs 1RF F32.9 - Major depressive disorder, single episode, unspecified, F41.9 - Anxiety disorder, unspecified
[2024-08-17 13:04] VITALS: BP 110/64; PULSE 76; O2SAT 97; BMI 28.7
== END 2024-08-17 14:12 | disposition home or self-care (01) ==
PROVIDERS: PCP Internal Medicine; Visit Provider Internal Medicine
DX: F41.9 Anxiety disorder, unspecified (principal)

== ENCOUNTER → 2024-08-17 12:49 | Outpatient (BNVA) | payer BC, SELFPAY | PROVIDERS: PCP Internal Medicine; Visit Provider Internal Medicine ==

== ENCOUNTER 2024-11-30 09:45 | Outpatient (AMB) | payer BC, SELFPAY ==
--- NOTE | 2024-11-30 09:46 | MHC.PC.OV ---
Vital Signs 11/30/24 09:47 Height 5 ft 4 in Weight 170 lb BMI 29.2 BP 118/74 Blood Pressure Location Lt brachial Position Sitting Respiration 18 Pulse 80 Pulse Source Pulse Oximeter Temp 98.2 F Temp Source Oral Pulse Oximetry (%) 95 Oxygen Delivery Method Room Air Intake Visit Reasons: Chest tightness/ wants ECHO Intake Note: Pt is here today for a sick visit. Pt c/o L side chest pain and pinching that happened twice in a month and it woke her up at night. Allergies No Known Allergies [No Known Allergies*] Allergy (Verified 11/30/24 09:49) Medication List - Last Reconciled 11/30/24 by Leslie Cottrell MD albuterol sulfate 90 mcg/actuation 2 puffs PO Q4H PRN beclomethasone dipropionate 80 mcg/actuation inhalation miscellaneous medical supply ergo chair as directed; Dx: neck and back pain miscellaneous medical supply rising desk as directed; DX: neck and back pain multivitamin 1 tab PO DAILY sertraline 150 mg (1.5 x 100 mg) PO DAILY [vitamin B12 PO] [vitamin D3 1000 unit a day] Tobacco use date assessed: 11/30/24 Dental Screening Dental Screen Date: 11/30/24 Did you have a dental visit in the last 12 months?: Yes Did you have a dental problem in the last 6 months where you did not have access to dental care?: No Was dental information given to patient?: Patient has dentist HPI Chest tightness/ wants ECHO HPI Details Patient presents complaining of 2 episodes of waking up with a feeling of the chest tightness lasting 10 minutes twice in the last month. She has been under lot of stress concerned about changes in her company and possibility of losing her job. Patient denies anxiety or depression. she has been exercising 5 times a week, fast walking and denies exercise-induced chest pain or shortness or breath. Patient denies GERD symptoms PFSH Medical History URI (upper respiratory infection) Annual physical exam Trigger finger of right thumb Depression Anxiety Surgical History H/O colonoscopy Social History Housing: House Patient Tobacco Use Status: Never used Tobacco e-Cigarette/Vaping Use: Never Used Second Hand Smoke Exposure: No service: No Current occupational status: employed Current occupation: Occupational Therapist Current occupational exposures/hazards: No Cognitive needs: No Hearing needs: No Vision needs: Yes Questionnaire PHQ-9 Over the last 2 weeks, how often have you been bothered by any of the following problems? 1. Little interest or pleasure in doing things: not at all 2. Feeling down, depressed, or hopeless: not at all 3. Trouble falling or staying asleep, or sleeping too much: not at all 4. Feeling tired or having little energy: not at all 5. Poor appetite or overeating: not at all 6. Feeling bad about yourself - or that you are a failure or have let yourself or your family down: not at all 7. Trouble concentrating on things, such as reading the newspaper or watching television: not at all 8. Moving or speaking so slowly that other people could have noticed. Or the opposite - being so fidgety or restless that you have been moving around a lot more than usual: not at all 9. Thoughts that you would be better off or of hurting yourself in some way: not at all Total score: 0 Depression Screening Interpretation: Negative Depression Screening Done: Yes [id number] - PHQ-9 Billing: Yes Source: Developed by Drs. Kadeem Marshall, Lizbeth Briones, Willie Gallego and colleagues, with an educational león from [employer]. Thrive Questionnaire Date Thrive assessed: 11/30/24 I am a: Patient What is your living situation today?: I have a steady place to live Within the past 12 months, did the food you bought not last and you didn't have the money to get more?: Never true Within the past 12 months, did you worry whether your food would run out before you got money to buy more?: Never true Do you have trouble paying for medicines?: No Do you have trouble getting transportation to medical appointments?: No Do you have trouble paying your heating and electricity bill?: No Do you have trouble taking care of your child, family member or friend?: No Do you have trouble with day-to-day activities such as bathing, preparing meals, shopping, managing finances, etc.?: No Are you currently unemployed and looking for a job?: No Are you interested in more education?: No Please select the resources that you would like help with: None Currently or been in a relationship where the following occur: No concerns reported THRIVE Score: 0 AUDIT C Alcohol Use Questionnaire (AUDIT-C) 1. How often do you have a drink containing alcohol?: 2-4 times a month 2. How many drinks containing alcohol do you have on a typical day when you are drinking?: 3 or 4 3. How often do you have six or more drinks on one occasion?: Never Total Score: 3 ANA-7 AMB Questionnaire ANA-7 Date ANA - 7 assessed: 11/30/24 Feeling nervous, anxious, or on edge: 1 = Several days Not being able to stop or control worryin = Several days Worrying too much about different things: 2 = More than half the days Trouble relaxin = Not at all Being so restless that it is hard to sit still: 0 = Not at all Becoming easily annoyed or irritable: 1 = Several days Feeling afraid as if something awful might happen: 1 = Several days Total ANA-7 score (0-4 normal; 5-9 mild; 10-14 moderate; 15-21 severe): 6 Source: Developed by Drs. Kadeem Marshall, Lizbeth Briones, Willie Gallego and colleagues, with an educational león from [employer]. ANA-7 Assessment Billing ANA-7 Assessment Tool: ANA-7 Assessment 17637 Review of Systems Const All systems reviewed & are unremarkable except as noted in HPI and below Eyes Reports no additional complaints ENT Reports no additional complaints Card Reports no additional complaints Resp Reports no additional complaints GI Reports no additional complaints Reports no additional complaints Physical exam (Primary Care) Vital Signs: Last Vital Signs Temp 98.2 F 11/30/24 09:47 Pulse 80 11/30/24 09:47 Resp 18 11/30/24 09:47 BP 118/74 11/30/24 09:47 Pulse Ox 95 11/30/24 09:47 Oxygen Delivery Method Room Air 11/30/24 09:47 BMI result Body Mass Index 29.2 Tobacco/Smoking Status: Tobacco use Status Tobacco use date assessed 11/30/24 11/30/24 09:53 Patient Tobacco Use Status Never used Tobacco 11/30/24 09:53 e-Cigarette/Vaping Use Never Used 11/30/24 09:53 PHQ-9: PHQ-9 Score PHQ-9: Total score 0 11/30/24 09:58 Depression Screening Interpretation: Negative Thrive Assessment: Date of Thrive Assessment Date Thrive assessed 11/30/24 11/30/24 09:58 Currently or been in a relationship where the following occur: No concerns reported Const General: no acute distress HENMT Head: Yes normal to inspection Ears: hearing grossly normal bilaterally Eyes General: appearance normal, both eyes and all related structures Neck Neck: Yes supple Resp Effort & Inspection: normal respiratory effort Auscultation: clear to auscultation bilaterally Cardio Rhythm: regular rhythm Heart sounds: S1 normal heart sound present and S2 normal heart sound present Coding Level of Care Code Est Pt Level 4 (00700) Diagnoses Anxiety F41.9 Vitamin D deficiency E55.9 Chest tightness R07.89 Additional Codes ANA-7 Assessment Billing - ANA-7 Assessment Tool: ANA-7 Assessment 40756 ([id number]) PHQ-9 - 49600 - PHQ-9 Billing: Yes ([id number]) Assessment & Plan Assessment & Plan (1) Anxiety: Code(s): F41.9 - Anxiety disorder, unspecified Category: Medical Plan: Stress management discussed with the patient patient has been tapering down sertraline (2) Vitamin D deficiency: Code(s): E55.9 - Vitamin D deficiency, unspecified Category: Medical Plan: Continue vitamin D (3) Chest tightness: Code(s): R07.89 - Other chest pain Category: Medical Plan: EKG showed normal sinus rhythm no ST-T changes. Stress management discussed with the patient. She was encouraged to continue regular physical activity Orders: Orders Vitamin D 25-OH Total 8 Months E55.9 - Vitamin D deficiency, unspecified, F41.9 - Anxiety disorder, unspecified, Z00.00 - Encounter for general adult medical examination without abnormal findings Comprehensive [place]. Panel Fast 8 Months E55.9 - Vitamin D deficiency, unspecified, F41.9 - Anxiety disorder, unspecified, Z00.00 - Encounter for general adult medical examination without abnormal findings Complete Blood Count Auto Diff 8 Months E55.9 - Vitamin D deficiency, unspecified, F41.9 - Anxiety disorder, unspecified, Z00.00 - Encounter for general adult medical examination without abnormal findings Lipid Panel 8 Months E55.9 - Vitamin D deficiency, unspecified, F41.9 - Anxiety disorder, unspecified, Z00.00 - Encounter for general adult medical examination without abnormal findings TSH reflex Free T4 8 Months E55.9 - Vitamin D deficiency, unspecified, F41.9 - Anxiety disorder, unspecified, Z00.00 - Encounter for general adult medical examination without abnormal findings
[2024-11-30 09:47] VITALS: BP 118/74; PULSE 80; RESP 18; TEMP 36.8; O2SAT 95; BMI 29.2
== END 2024-11-30 10:57 | disposition home or self-care (01) ==
LOC: HO.HMCC 09:46
PROVIDERS: PCP Internal Medicine; Visit Provider Internal Medicine
DX: F41.9 Anxiety disorder, unspecified (principal); E55.9 Vitamin D deficiency, unspecified; R07.89 Other chest pain

== ENCOUNTER → 2024-11-30 09:45 | Outpatient (BNVA) | payer BC, SELFPAY | PROVIDERS: PCP Internal Medicine; Visit Provider Internal Medicine | DX: F41.9 Anxiety disorder, unspecified (principal); E55.9 Vitamin D deficiency, unspecified; R07.89 Other chest pain | CPT/HCPCS: 96127 ==

== ENCOUNTER 2025-07-05 09:16 | Outpatient (REF) | payer BC, SELFPAY ==
[2025-07-05 13:37] LABS: MANUAL DIFF FLAG NO
[2025-07-05 13:42] LABS: Hematocrit 41.3 % (37.0-47.0); Hemoglobin 13.9 g/dl (12.0-16.0); Imm Gran Abs Auto 0.04 X10*3/uL (0.00-0.03); Imm Gran Pct Auto 0.5 % (0.0-0.4); Lymphocytes Absolute Auto 1.3 X10*3/uL (1.2-4.9); Mean Corpuscular HGB Conc 33.7 g/dl (31.0-35.0); Mean Corpuscular Hemoglobin 31.7 pg (27.0-33.0); Mean Corpuscular Volume 94.1 fL (80.0-98.0); NRBC Abs Auto 0.000 X10*3/uL (0.0-0.012); NRBC Pct Auto 0.0 /100WBC (0.0-0.2); Platelet Count 263 X10*3/uL (160-400); Red Blood Count 4.39 X10*6/uL (4.20-5.50); White Blood Count 8.1 X10*3/uL (4.8-10.8)
[2025-07-05 14:22] LABS: Alanine Aminotransferase 20 U/L (0-31); Albumin Level 4.6 g/dL (3.5-5.0); Alkaline Phosphatase 99 U/L (39-117); Anion Gap 10 (12-20); Aspartate Amino Transferase 22 U/L (5-31); Blood Urea Nitrogen 11 mg/dL (9-16); Calcium 9.2 mg/dL (8.4-10.2); Carbon Dioxide 27 mmol/L (22-29); Chloride 107 mmol/L (96-108); Cholesterol 220 mg/dL (<200); Estimated Glomerular Filt Rate > 60; HDL Cholesterol 69 mg/dL (>40); Potassium 3.6 mmol/L (3.3-5.1); Sodium 140 mmol/L (135-145); Total Protein 7.1 g/dL (6.5-8.0); Triglycerides 123 mg/dL (<150)
== END 2025-07-05 09:17 | disposition home or self-care (01) ==
LOC: HO.HMGCLDS 09:16
PROVIDERS: PCP Internal Medicine; Visit Provider Internal Medicine
DX: Z00.00 Encounter for general adult medical examination without abnormal findings (principal); F41.9 Anxiety disorder, unspecified; E55.9 Vitamin D deficiency, unspecified; R00.2 Palpitations; R42 Dizziness and giddiness; I34.1 Nonrheumatic mitral (valve) prolapse; Z98.890 Other specified postprocedural states
CPT/HCPCS: 36415; 80053; 80061; 82306; 84443; 85025; 96127

== ENCOUNTER 2025-07-05 09:16 | Outpatient (AMB) | payer BC, SELFPAY ==
--- NOTE | 2025-07-05 09:18 | MHC.PC.OV ---
Vital Signs 07/05/25 09:19 Height 5 ft 4 in Weight 167 lb BMI 28.7 BP 124/78 Blood Pressure Location Lt brachial Position Sitting Respiration 17 Pulse 82 Pulse Source Pulse Oximeter Temp 98.4 F Temp Source Oral Pulse Oximetry (%) 97 Oxygen Delivery Method Room Air Intake Visit Reasons: Annual PE - see comments Intake Note: Pt is here today for PE. Allergies No Known Allergies (No Known Allergies*) Allergy (Verified 07/05/25 09:20) Medication List - Last Reconciled 07/05/25 by Leslie Cottrell MD albuterol sulfate 90 mcg/actuation 2 puffs PO Q4H PRN beclomethasone dipropionate 80 mcg/actuation inhalation miscellaneous medical supply ergo chair as directed; Dx: neck and back pain miscellaneous medical supply rising desk as directed; DX: neck and back pain multivitamin 1 tab PO DAILY sertraline 150 mg (1.5 x 100 mg) PO DAILY [vitamin B12 PO] [vitamin D3 1000 unit a day] Tobacco use date assessed: 11/30/24 Dental Screening Dental Screen Date: 07/05/25 Did you have a dental visit in the last 12 months?: Yes Did you have a dental problem in the last 6 months where you did not have access to dental care?: No Was dental information given to patient?: Patient has dentist HPI Annual PE - see comments HPI Details Pt presents for PE. Pt reports episodes of palpitations on and off lasting a few secs usually when working. She denies shortness or breath chest pain lightheadedness associated with palpitations. Pt has been under a stress because her 22 yr son who in grade school moved back and she has not been sleeping well waiting for him to come home at night. Patient takes brisk walks for 2 mi 3 times a week and denies any exercise induced palpitations or chest pains. Chronic anxiety stable on sertraline [facility] Medical History (Updated 07/05/25 @ 10:36 by Leslie Cottrell MD) MVP (mitral valve prolapse) Normal pelvic exam URI (upper respiratory infection) Annual physical exam Trigger finger of right thumb Depression Anxiety Surgical History H/O colonoscopy Social History (Reviewed 07/05/25 @ 09:22 by SMITA Prescott Housing: House Patient Tobacco Use Status: Never used Tobacco e-Cigarette/Vaping Use: Never Used Second Hand Smoke Exposure: No service: No Current occupational status: employed Current occupation: Occupational Therapist Current occupational exposures/hazards: No Cognitive needs: No Hearing needs: No Vision needs: Yes Questionnaire PHQ-9 Over the last 2 weeks, how often have you been bothered by any of the following problems? 1. Little interest or pleasure in doing things: not at all 2. Feeling down, depressed, or hopeless: not at all 3. Trouble falling or staying asleep, or sleeping too much: not at all 4. Feeling tired or having little energy: not at all 5. Poor appetite or overeating: not at all 6. Feeling bad about yourself - or that you are a failure or have let yourself or your family down: not at all 7. Trouble concentrating on things, such as reading the newspaper or watching television: not at all 8. Moving or speaking so slowly that other people could have noticed. Or the opposite - being so fidgety or restless that you have been moving around a lot more than usual: not at all 9. Thoughts that you would be better off or of hurting yourself in some way: not at all Total score: 0 Depression Screening Interpretation: Negative Depression Screening Done: Yes Source: Developed by Drs. Kadeem Marshall, Lizbeth Briones, Willie Gallego and colleagues, with an educational león from [employer]. Thrive Questionnaire Date Thrive assessed: 11/27/24 I am a: Patient What is your living situation today?: I have a steady place to live Within the past 12 months, did the food you bought not last and you didn't have the money to get more?: Never true Within the past 12 months, did you worry whether your food would run out before you got money to buy more?: Never true Do you have trouble paying for medicines?: No Do you have trouble getting transportation to medical appointments?: No Do you have trouble paying your heating and electricity bill?: No Do you have trouble taking care of your child, family member or friend?: No Do you have trouble with day-to-day activities such as bathing, preparing meals, shopping, managing finances, etc.?: No Are you currently unemployed and looking for a job?: No Are you interested in more education?: No Please select the resources that you would like help with: None Currently or been in a relationship where the following occur: No concerns reported THRIVE Score: 0 ANA-7 AMB Questionnaire ANA-7 Date ANA - 7 assessed: 11/30/24 Feeling nervous, anxious, or on edge: 1 = Several days Not being able to stop or control worryin = Several days Worrying too much about different things: 2 = More than half the days Trouble relaxin = Not at all Being so restless that it is hard to sit still: 0 = Not at all Becoming easily annoyed or irritable: 1 = Several days Feeling afraid as if something awful might happen: 1 = Several days Total ANA-7 score (0-4 normal; 5-9 mild; 10-14 moderate; 15-21 severe): 6 Source: Developed by Drs. Kadeem Marshall, Lizbeth Briones, Willie Gallego and colleagues, with an educational león from [employer]. Review of Systems Const All systems reviewed & are unremarkable except as noted in HPI and below Eyes Reports no additional complaints ENT Reports no additional complaints Card Reports no additional complaints Resp Reports no additional complaints GI Reports no additional complaints Reports no additional complaints Physical exam (Primary Care) Vital Signs: Last Vital Signs Temp 98.4 F 07/05/25 09:19 Pulse 82 07/05/25 09:19 Resp 17 07/05/25 09:19 BP 124/78 07/05/25 09:19 Pulse Ox 97 07/05/25 09:19 Oxygen Delivery Method Room Air 07/05/25 09:19 BMI result Body Mass Index 28.7 Tobacco/Smoking Status: Tobacco use Status Tobacco use date assessed 11/30/24 07/05/25 09:24 Patient Tobacco Use Status Never used Tobacco 07/05/25 09:24 e-Cigarette/Vaping Use Never Used 07/05/25 09:24 PHQ-9: PHQ-9 Score PHQ-9: Total score 0 07/05/25 09:24 Depression Screening Interpretation: Negative Thrive Assessment: Date of Thrive Assessment Date Thrive assessed 11/27/24 07/05/25 09:24 Currently or been in a relationship where the following occur: No concerns reported Const General: no acute distress HENMT Head: Yes normal to inspection Ears: hearing grossly normal bilaterally Face and sinus: Yes normal facial exam Mouth: Normal oral and palatal mucosa present Throat: Yes posterior oropharynx normal Eyes General: appearance normal, both eyes and all related structures Neck Neck: Yes no lymphadenopathy and Yes supple Resp Effort & Inspection: normal respiratory effort Auscultation: clear to auscultation bilaterally Cardio Rhythm: regular rhythm Heart sounds: S1 normal heart sound present, S2 normal heart sound present and Murmur heart sound present systolic GI Inspection: Yes normal to inspection Palpation (GI): Soft to palpation Percussion: Yes normal to percussion Auscultation: normal bowel sounds Coding Level of Care Code Est Pt Prev Care 40-64y(64884) Diagnoses Anxiety F41.9 H/O colonoscopy Z98.890 Annual physical exam Z00.00 MVP (mitral valve prolapse) I34.1 Palpitations R00.2 Assessment & Plan Assessment & Plan (1) Anxiety: Code(s): F41.9 - Anxiety disorder, unspecified Category: Medical Plan: Continue sertraline stress management discussed with the patient. Counseling was recommended (2) H/O colonoscopy: Comment: colonoscopy 12/2018 1 polyp 8 mm, repeat 2021, recheck in 3 years, Dr. Santana Code(s): Z98.890 - Other specified postprocedural states Category: Surgical Plan: Patient is scheduled to have repeat colonoscopy in August (3) Annual physical exam: Code(s): Z00.00 - Encounter for general adult medical examination without abnormal findings Category: Medical Plan: Well-balanced diet regular physical activity discussed with the patient. She is up-to-date with the Pap smear by [employer] and mammogram. (4) MVP (mitral valve prolapse): Comment: echo 2019 Code(s): I34.1 - Nonrheumatic mitral (valve) prolapse Category: Medical Plan: Obtain repeat echo to follow-up on mitral valve prolapse/mitral regurg (5) Palpitations: Code(s): R00.2 - Palpitations Category: Medical Plan: EKG showed normal sinus rhythm no ST-T changes. Patient was advised to monitor his symptoms and Holter may be obtained if her symptoms persist or worsen Orders: Orders [place] Echo Limited Today I34.1 - Nonrheumatic mitral (valve) prolapse
[2025-07-05 09:19] VITALS: BP 124/78; PULSE 82; RESP 17; TEMP 36.9; O2SAT 97; BMI 28.7
--- OUTSIDE RECORDS SUMMARY | 2025-07-05 10:19 | XMS_ITS | Clinical Summary ---
Author Organization [facility] [address] [facility] Address [address] [place] [address] Phone Care Team Providers Care Fine Sander Name Role Phone Leslie Cottrell MD Primary Care Provider [phone] Allergies Active Allergy Reactions Criticality Noted Date Comments [place] Anaphylaxis High 07/23/2022 Medications beclomethasone dipropionate (QVAR REDIHALER) 80 mcg/actuation HFA aerosol breath activated inhaler Inhale by mouth. Active cyanocobalamin (VITAMIN B-12) 2,500 mcg tablet Take 1,000 mcg by mouth. Active sertraline (ZOLOFT) 100 mg tablet Take 1.5 tablets (150 mg total) by mouth. Active cholecalciferol, vitamin D3, 25 mcg (1,000 unit) tablet,chewable Chew 25 mcg. A ctive albuterol sulfate 90 mcg/actuation aerosol powdr breath activated Inhale 180 mcg by mouth every 4 (four) hours. Active Encounters Date Type Department Care Team Description 05/04/2025 Telephone Gastroenterology - [address] [id number] Leslie Santana MD 04/28/2025 Telephone Gastroenterology - [address] [id number] Leslie Santana MD from Last 3 Months Social History Tobacco Use Types Packs/Day Years Used Date Smoking Tobacco: Never Assessed Comments Unknown Sex and Gender Information Value Date Recorded Sex Assigned at Not on file Legal Sex Female 2:30 PM EST Gender Identity Not on file Sexual Orientation Not on file Plan of Treatment Health Maintenance Due Date Last Done Comments Breast Cancer Screening 1965 DTaP,Tdap,and Td Vaccines (1 - Tdap) 11/23/1986 Hepatitis B Vaccines (1 of 3 - 19+ 3-dose series) 11/23/1986 Cervical Cancer Screening: P ap Smear 11/23/1988 Pneumococcal Vaccine: 50+ Years (1 of 1 - PCV) 11/23/2017 Zoster Vaccines (1 of 2) 11/23/2017 HIV Screening 08/01/2022 Hepatitis C Screening 08/01/2022 Social Influencers of Health Screening 08/01/2022 Depression Screening 09/02/2024 COVID-19 Vaccine (1 - 2023-2 5 season) 2025 Influenza Vaccine (#1) 2025 Colorectal Cancer Screening: Colonoscopy 07/30/2032 07/30/2022, 01/16/2019 RSV Immunization Adult Patients (1 - 1-dose 75+ series) 11/23/2042 HIB Vaccines Aged Out No longer eligi ble based on patient's age to complete this topic HPV Vaccines Aged Out No longer eligi ble based on patient's age to complete this topic Hepatitis A Vaccines Aged Out No long er eligible based on patient's age to complete this topic IPV Vaccines Aged Out No longer eligi ble based on patient's age to complete this topic MMR Vaccines Aged Out No longer eligi ble based on patient's age to complete this topic Meningococcal ACWY Vaccine Aged Out N o longer eligible based on patient's age to complete this topic Meningococcal B Vaccine Aged Out No l onger eligible based on patient's age to complete this topic RSV Immunization Patients Under 20 months Aged Out No longer eligible b ased on patient's age to complete this topic Varicella Vaccines Aged Out No longer eligible based on patient's age to complete this topic Procedures Procedure Name Priority Date/Time Associated Diagnosis Comments COLONOSCOPY Routine 07/30/2022 10:19 AM EST from Last 3 Months or Most Recently Relevant to Health Maintenance Results * COLONOSCOPY (07/30/2022 10:19 AM EST) Anatomical Region Laterality Modality Endoscopy Leslie Santana MD GI~PROCEDURE ORDERABLES Final Result from Last 3 Months or Most Recently Relevant to Health Maintenance Insurance [facility] Care Teams Fine Sander Relationship Specialty Start Date End Date Leslie Cottrell MD [address] [place] [address] PCP - General Internal Medicine 04/28/25
== END 2025-07-05 10:37 | disposition home or self-care (01) ==
LOC: HO.HMCC 09:17
PROVIDERS: PCP Internal Medicine; Visit Provider Internal Medicine
DX: Z00.00 Encounter for general adult medical examination without abnormal findings (principal); R00.2 Palpitations; F41.9 Anxiety disorder, unspecified; Z98.890 Other specified postprocedural states; I34.1 Nonrheumatic mitral (valve) prolapse

== ENCOUNTER → 2025-08-10 08:02 | Outpatient (REF) | payer BC, SELFPAY ==
--- NOTE | 2025-08-10 09:19 | CA_ITS ---
Transthoracic Echocardiogram Patient (Last, First, Middle): Marlene Calvillo A Gender: F Date of : 1965 Age: 59 Procedure Date: 08/10/2025 Procedure Type: Transthoracic Echocardiogram Location: OP Height: 162.56 cm Weight: 75.75 kg BSA: 1.81 m2 Heart Rate: bpm BP: 124 / 78 mmHg Anesthesiology Medical Doctor: LAKESHIA Referring MD: Leslie Cottrell MD Director Instructional Material: Cooper Greenwood MD Symptoms: I34.1 -Nonrheumatic mitral (valve) prolapse Study Quality: Adequate ECG Rhythm: Sinus Conclusions: - 1. Normal LV ejection fraction 55-60% with grade 1 diastolic dysfunction 2. Mild thickening of the anterior mitral leaflet suggestive of myxomatous changes with bowing of the posterior leaflet without significant prolapse with normal cardiac valvular Dopplers 3. No gross pericardial effusion Findings Left Ventricle Normal left ventricular size, thickness, and systolic function. The visually estimated ejection fraction is between 55-60%. Spectral Doppler is indicative of an impaired relaxation filling pattern. E/E prime ratio is <8, consistent with normal filling pressures. Evidence suggests grade I (mild) diastolic dysfunction. Right Ventricle Normal right ventricular cavity size and systolic function. Atria Both atria are normal in size. There is no evidence of interatrial shunt. Aortic Valve Normal aortic valve structure and function. There is no aortic valve stenosis. There is no aortic valve regurgitation. Mitral Valve The mitral valve appears myxomatous. There is mild anterior mitral leaflet thickening. There is bowing of the posterior mitral leaflet without obvious prolapse. There is no mitral valve regurgitation. There is no mitral valve stenosis. Pulmonic Valve The pulmonic valve is likely normal. Tricuspid Valve Normal tricuspid valve structure. Tricuspid regurgitation envelope is inadequate for calculation of right ventricular systolic pressure. Normal right atrial pressure. Great Vessels All visible segments of the aorta are normal in size. The pulmonary artery was not well visualized. There is no dilatation of the ascending aorta measuring 2.80 cm. Venous The inferior vena cava is normal in size and collapses greater than 50% with inspiration. Pericardium/Pleural There is no evidence of pericardial effusion. Prior Study Comparison No significant change compared to prior study dated: 04/03/2019. Measurements 2D Linear Measurements IVSd: 0.71 0.6-0.9/0.6-1.0 cm LVIDd: 4.91 3.9-5.3/4.2-5.9 cm LVIDd Index: 2.71 2.4-3.2/2.2-3.1 cm/m2 LVIDs: 3.10 2.0-3.6 cm LVPWd: 0.80 0.7-1.1 cm LA Diam: 2.80 2.7-3.8/3.0-4.0 cm LAIDs Index: 1.55 1.5-2.3 cm/m2 LV Mass: 151.32 67-162/88-224 g LV Mass Index: 83.60 43-95/49-115 g/m2 LVOT Diam: 2.00 3.0+(-)1.3 cm Mitral Valve MV Pk E: 0.52 MV PK A: 0.71 MV Decel Time: 284.00 E/A: 0.70 E'Lateral: 9.79 E'Medial: 8.05 E/E' Med: 6.50 E/E' Lat: 5.30 PHT: 83.00 MVA PHT: 2.65 Decel [place]: 1.84 Aortic Valve AoV Pk Len: 1.24 AoV Mn Len: 0.92 AoV VTI: 0.27 AoV Pk Grad: 6.00 Aov Mn Grad: 4.00 IRISH Cont.VTI: 2.18 LVOT LVOT Pk Len: 0.98 LVOT Mn Len: 0.72 LVOT VTI: 0.19 LVOT Pk Grad: 4.00 LVOT Mn Grad: 2.00 LVOT Diam: 2.00 LVOT Area: 3.14 Diastolic Function MV Pk E: 0.52 MV Pk A: 0.71 E/A: 0.70 E'Medial: 8.05 E/E' Med: 6.50 E' Laterial: 9.79 E/E' Lat: 5.30 Right Ventricle TAPSE (mm): 20.70 TVS' Len: 11.70 Tricuspid Valve RA Press: 3.00 Great Vessels Aorta Sinus of Valsalva: 2.99 2.0-3.5 cm Ao Asc: 2.80 2.1-3.4 cm Pulmonary Veins Pulm Vein S/D 1.40 Updated in Other Vendor System with Status of Final Cooper Greenwood MD electronically signed on 08/10/2025 12:07:22 PM with status of Final
== END ==
LOC: HO.CARD 08:02
PROVIDERS: PCP Internal Medicine; Visit Provider Internal Medicine
DX: I34.1 Nonrheumatic mitral (valve) prolapse (principal)
CPT/HCPCS: 93306

== ENCOUNTER → 2025-08-10 09:19 | Outpatient (BNV) | payer BC, SELFPAY | PROVIDERS: PCP Internal Medicine; Visit Provider Internal Medicine Cardiovascular Disease | DX: I34.89 Other nonrheumatic mitral valve disorders (principal) | CPT/HCPCS: 93306 ==